=== PATIENT | male | born 1980 | race Caucasian/White ===

== ENCOUNTER → 2021-12-25 | Outpatient (CLI) | payer OTHER | LOC: COL.CARD 08:58 | DX: G40.802 Other epilepsy, not intractable, without status epilepticus (principal); G43.009 Migraine without aura, not intractable, without status migrainosus; E55.9 Vitamin D deficiency, unspecified ==

== ENCOUNTER 2024-01-30 15:32 | Emergency (ER) | payer OTHER ==
[~2024-01-30] VITALS: Ht 167.6 cm; Wt 75.0 kg
[2024-01-30 15:41] VITALS: BP 130/89; TEMP 98.4
[2024-01-30 16:56] VITALS: PULSE 68
== END 2024-01-30 16:56 | disposition home or self-care (01) ==
LOC: COL.ER 15:32
DX: S46.212A Strain of muscle, fascia and tendon of other parts of biceps, left arm, initial encounter (principal); F17.210 Nicotine dependence, cigarettes, uncomplicated; X50.0XXA Overexertion from strenuous movement or load, initial encounter